=== PATIENT | female | born 1965 | race Caucasian/White ===

== ENCOUNTER 2022-01-16 08:01 | Outpatient (CLI) | payer OTHER, MEDICARE, SELFPAY ==
[2022-01-16 13:52] LABS: Chloride* 102 mmol/L (96-114); Sodium* 142 mmol/L (135-149)
[2022-01-16 13:53] LABS: Potassium* 3.7 mmol/L (3.6-5.1)
[2022-01-16 13:55] LABS: Blood Urea Nitrogen* 13 mg/dL (7-30); Carbon Dioxide* 30 mmol/L (20-32); Cholesterol* 228 mg/dL (90-199); Estimated Glomerular Filt Rate 65 ml/min
[2022-01-16 13:56] LABS: Calcium* 10.4 mg/dL (8.4-10.6); Glucose* 78 mg/dL (60-115); HDL Cholesterol* 72 mg/dL (>=50); LDL Cholesterol Calculated 137 mg/dL (<100); Triglycerides* 93 mg/dL (40-149)
== END 2022-01-16 08:02 | disposition home or self-care (01) ==
PROVIDERS: PCP Family Medicine; Visit Provider Family Medicine
DX: Z01.419 Encounter for gynecological examination (general) (routine) without abnormal findings (principal); I10 Essential (primary) hypertension; E78.5 Hyperlipidemia, unspecified; F41.9 Anxiety disorder, unspecified; Z13.0 Encounter for screening for diseases of the blood and blood-forming organs and certain disorders involving the immune mechanism
CPT/HCPCS: 80048; 80061

== ENCOUNTER 2022-04-12 14:00 | Outpatient (RCR) | payer OTHER, MEDICARE, SELFPAY | END 2022-05-01 23:59 | disposition home or self-care (01) | LOC: CCIC 14:00 | PROVIDERS: PCP Family Medicine; Visit Provider Nurse Practitioner Family | DX: C50.919 Malignant neoplasm of unspecified site of unspecified female breast (principal) | CPT/HCPCS: 99212; 99214 ==

== ENCOUNTER 2022-07-11 13:18 | Outpatient (CLI) | payer OTHER, MEDICARE, SELFPAY ==
--- NOTE | 2022-07-11 13:45 | CRLHL7_ITS ---
For Patients: As a result of the 21st Century Cures Act, medical imaging exams and procedure reports are released immediately into your electronic medical record. You may view this report before your referring provider. If you have questions, please contact your health care provider. Indication: Right leg weakness, history of breast cancer Technique: Multiplanar, multisequence, MRI of the lumbar spine, obtained without contrast. Comparison: No relevant comparison studies available at this institution. Findings: Thoracolumbar dextro curvature, apex at L1-2, with left eccentric degenerative Modic type 1 endplate changes at this level. Preserved lumbar lordosis, with degenerative grade 1 anterolisthesis L4 on L5, and associated degenerative Modic type 2 endplate changes. No evidence of acute fracture. Intrinsic bone marrow signal is unremarkable. The conus medullaris terminates at approximately L2. No suspicious findings within the paraspinal soft tissues. Unremarkable included SI joints. T12-L1: No significant neural foraminal or spinal canal stenosis. L1-L2: Diffuse disc bulge with left central cranial disc extrusion and mild facet arthropathy. Mild spinal canal narrowing and left lateral recess stenosis with impingement of the descending left L2 nerve. Mild left neural foraminal narrowing. No significant right neural foraminal narrowing. L2-L3: No significant neural foraminal or spinal canal stenosis. L3-L4: No significant neural foraminal or spinal canal stenosis. L4-L5: Anterolisthesis, disc unroofing/bulge, right asymmetric moderately advanced facet arthropathy. Mild left, moderate-severe right neural foraminal stenosis with likely impingement of the exiting right L4 nerve root. Moderate spinal canal stenosis. L5-S1: Shallow central disc protrusion and mild facet arthropathy. No significant neural foraminal or spinal canal stenosis. Impression: 1. No evidence of acute osseous abnormality. No suspicious marrow lesion to suggest metastatic disease on this noncontrast exam. 2. Lumbar spondylosis, with dextrocurvature apex at L1-2 associated with degenerative Modic type 1 endplate changes, and degenerative grade 1 anterolisthesis at L4-5 with degenerative Modic type 2 endplate changes. 3. At L1-2, left central cranial disc extrusion and mild facet arthropathy contribute to mild spinal canal narrowing with left lateral recess stenosis, potentially impinging the descending left L2 nerve root. 4. At L4-5, anterolisthesis, degenerative disc changes and facet arthropathy contribute to moderate-severe right neural foraminal stenosis with likely impingement of the exiting right L4 nerve root, and moderate spinal canal stenosis. Dictated by Tawnya Taylor MD @ 07/12/2022 12:36:01 PM (Electronically Signed)
== END 2022-07-11 13:19 | disposition home or self-care (01) ==
PROVIDERS: PCP Family Medicine; Visit Provider Family Medicine
DX: R29.898 Other symptoms and signs involving the musculoskeletal system (principal); Z85.3 Personal history of malignant neoplasm of breast; M47.896 Other spondylosis, lumbar region; M51.36 Other intervertebral disc degeneration, lumbar region
CPT/HCPCS: 72148

== ENCOUNTER 2022-07-19 15:47 | Outpatient (CLI) | payer OTHER, MEDICARE, SELFPAY ==
--- NOTE | 2022-07-19 16:15 | CRLHL7_ITS ---
For Patients: As a result of the 21st Century Cures Act, medical imaging exams and procedure reports are released immediately into your electronic medical record. You may view this report before your referring provider. If you have questions, please contact your health care provider. EXAM: PET-CT SKULL BASE TO THIGH CLINICAL INFORMATION: 57-yo female with history of breast cancer. Prior bilateral mastectomy with reconstruction in 2019. Prior chemotherapy. Weight loss. Neuropathy. Patient is referred for further characterization. TECHNIQUE: Radiopharmaceutical: 11.92 mCi of 18F-FDG Intravenous injection site: RAC Uptake time: 70 minutes Blood glucose level at the time of injection: 90 mg/dL Field of view: Skull base to mid-thighs CT protocol: The low-dose, free-breathing, noncontrast CT performed as part of this study is designed for the purposes of attenuation correction and lesion localization, and it is neither sufficient, nor it should be substituted for diagnostic purposes. COMPARISON: CT chest abdomen pelvis 10/19/2020 FINDINGS: Physiologic background liver standardized uptake value (SUV mean and SUV max) reported for comparison between PET studies: 3.1 and 3.8. Visualized head and neck: Physiologic uptake in the visualized portions of the brain. Small cysts/nodules in each lobe of the thyroid with no progressive uptake. -bandlike uptake across the posterior wall supraglottic larynx between arytenoid cartilage without noncontrast CT abnormality, SUV max 11.1 (fused image 39). Possibly reactive/inflammatory or physiologic. Consider direct visualization. Head and neck lymph nodes: Bilateral level 2 lymph nodes with uptake are nonspecific. For example: Left level 2 lymph node, 0.8 cm short axis, SUV max 3.8. Lungs: No hypermetabolic pulmonary nodules or abnormal uptake. Dependent areas of atelectasis. Thoracic lymph nodes: No hypermetabolic mediastinal, hilar or axillary thoracic lymph nodes. Other chest findings: Prior bilateral mastectomies with implant reconstruction. No suspicious chest/chest wall soft tissue or axillary soft uptake. Hepatobiliary: Low-density lesion lateral left hepatic lobe without suspicious uptake; previously described hemangioma. Curvilinear uptake along the gallbladder fundus and anterior inferior liver margin, SUV max 4.7 (fused image 146). No noncontrast CT abnormality. Possibly reactive or inflammatory. Spleen: No abnormal uptake. No splenomegaly. Pancreas: No abnormal uptake. Adrenal glands: No abnormal uptake. Kidneys and bladder: No abnormal uptake or obstruction. Limited bladder distention. Bowel and peritoneum: No suspicious gastric or small bowel uptake. Scattered areas of uptake in the distal colon demonstrate no definitive noncontrast CT abnormality. For example: Midsigmoid colon uptake, SUV max 4.1 (fused image 220). Nonspecific, possibly reactive/inflammatory or physiologic. Mild colonic diverticulosis without inflammatory change. Normal appendix. Pelvic organs: No abnormal uptake. Abdominopelvic lymph nodes: No hypermetabolic abdominopelvic lymph nodes. Musculoskeletal, soft tissues, skin: No suspicious tracer avid osseous lesions. Degenerative type uptake within the shoulders, right sternoclavicular joint and spine. Modest thoracolumbar curvature with multilevel disc degenerative change. Grade 2 anterolisthesis of L4 upon L5. Other: Scattered aortoiliac atherosclerotic vascular calcifications. IMPRESSION: 1. Postprocedural changes related to prior bilateral mastectomies with implant reconstruction. No suspicious chest/chest wall or axillary soft tissue uptake. 2. Unchanged low-density lesion lateral left hepatic lobe without suspicious uptake has been previously described as a hemangioma. Curvilinear uptake along the inferior liver margin bordering the gallbladder fundus is nonspecific. Correlate with symptoms and consider directed ultrasound. 3. Nonenlarged bilateral level 2 lymph nodes with uptake are nonspecific, possibly reactive/inflammatory. 4. Bandlike soft tissue uptake across the posterior supraglottic larynx without a discrete abnormality on noncontrast CT. Possibly reactive or physiologic. Consider direct visualization. 5. No distant sites of tracer avid disease in the lungs, abdominal pelvic lymph nodes or osseous structures. 6. Other nonacute findings as detailed in the body of the report. Dictated by Kelvin Vanessa MD @ 07/28/2022 5:30:46 PM (Electronically Signed)
== END 2022-07-19 15:48 | disposition home or self-care (01) ==
LOC: RAD 15:48
PROVIDERS: PCP Family Medicine; Visit Provider Physician Assistant
DX: R63.4 Abnormal weight loss (principal); C50.919 Malignant neoplasm of unspecified site of unspecified female breast; G62.9 Polyneuropathy, unspecified
CPT/HCPCS: 78815; A9552

== ENCOUNTER 2022-08-16 09:21 | Outpatient (CLI) | payer OTHER, MEDICARE, SELFPAY ==
--- NOTE | 2022-08-16 10:00 | CRLHL7_ITS ---
For Patients: As a result of the Century Cures Act, medical imaging exams and procedure reports are released immediately into your electronic medical record. You may view this report before your referring provider. If you have questions, please contact your health care provider. INDICATION: Breast cancer. TECHNIQUE: CT images acquired through the neck following intravenous contrast. COMPARISON: PET-CT 07/19/2022. FINDINGS: The nasopharynx, oropharynx, hypopharynx, and larynx are widely patent without enhancing lesions. No retropharyngeal edema or epiglottic thickening. No enhancing lesions in the oral cavity or floor of mouth. The parotid glands are unremarkable. The submandibular glands are hypoplastic or atrophic. Hypoenhancing 6 mm lesion left thyroid lobe, nonspecific. No pathologically enlarged lymph nodes. Mildly prominent bilateral level II lymph nodes are likely reactive. Atherosclerotic calcifications at the left greater than right carotid bifurcations. Limited images through the brain are without pathologic intracranial enhancement. The visualized paranasal sinuses and mastoid air cells are clear. Multilevel cervical spondylosis. No aggressive osseous lesions. Incompletely visualized breast implants. No concerning opacities in the visualized lungs. IMPRESSION: No mass or pathologically enlarged lymph nodes in the neck. Please note that all CT scans at this facility use dose modulation, iterative reconstruction, and/or weight-based dosing when appropriate to reduce radiation dose to as low as reasonably achievable. Dictated by Talon Smith MD @ 08/18/2022 7:09:06 AM (Electronically Signed)
== END 2022-08-16 09:22 | disposition home or self-care (01) ==
LOC: CT 09:21
PROVIDERS: PCP Family Medicine; Visit Provider Clinical Nurse Specialist
DX: C50.919 Malignant neoplasm of unspecified site of unspecified female breast (principal)
CPT/HCPCS: 70491; Q9967

== ENCOUNTER 2022-09-05 13:16 | Outpatient (CLI) | payer OTHER, MEDICARE, SELFPAY ==
--- NOTE | 2022-09-05 13:45 | CRLHL7_ITS ---
For Patients: As a result of the Century Cures Act, medical imaging exams and procedure reports are released immediately into your electronic medical record. You may view this report before your referring provider. If you have questions, please contact your health care provider. INDICATION: hypodense left thyroid nodule, hx breast cancer COMPARISON: CT 08/16/2022, CT-PET 07/19/2022 TECHNIQUE: Schuler scale and color Doppler images were acquired of the thyroid gland. FINDINGS: The thyroid gland demonstrates mildly heterogeneous echogenicity and has a smooth outer contour. The right lobe measures 5.4 x 1.0 x 1.7 cm and the left lobe measures 5.7 x 1.0 x 1.8 cm in size. Isthmus measures 2 millimeters. Circumscribed hypoechoic solid and cystic nodule within the left thyroid lobe laterally measuring 1.6 x 0.6 x 1.0 cm. Associated calcifications are present. Tiny sub centimeters colloid cysts are present bilaterally. The color Doppler images demonstrate normal vascularity. There is no evidence of cervical lymphadenopathy or parathyroid mass. IMPRESSION: 1.6 cm TR 4 nodule left thyroid lobe. FNA recommended. Dictated by Fly Morgan MD @ 09/06/2022 9:33:56 AM (Electronically Signed)
== END 2022-09-05 13:17 | disposition home or self-care (01) ==
LOC: US 13:17
PROVIDERS: PCP Family Medicine; Visit Provider Otolaryngology
DX: E04.1 Nontoxic single thyroid nodule (principal); E07.9 Disorder of thyroid, unspecified; Z85.3 Personal history of malignant neoplasm of breast; Z85.53 Personal history of malignant neoplasm of renal pelvis
CPT/HCPCS: 76536

== ENCOUNTER 2022-09-25 10:51 | Outpatient (CLI) | payer OTHER, MEDICARE, SELFPAY ==
--- NOTE | 2022-09-25 11:15 | CRLHL7_ITS ---
For Patients: As a result of the Century Cures Act, medical imaging exams and procedure reports are released immediately into your electronic medical record. You may view this report before your referring provider. If you have questions, please contact your health care provider. INDICATION : Left thyroid nodule. TECHNIQUE : Ultrasound-guided fine needle aspiration of thyroid nodule. Comparison : 09/05/2022 FINDINGS : PROCEDURE: After the informed consent and time-out, multiple fine needle aspirations were obtained from the thyroid nodule. Fine needle performed. 25 gauge needles were used. Lidocaine was used for local anesthesia. The preliminary cytology was adequate for interpretation. Real-time imaging was used for guidance and needle placement. Post imaging ultrasound demonstrates no immediate complication. IMPRESSION : Successful fine needle aspiration left thyroid lobe nodule. Dictated by Fly Morgan MD @ 09/25/2022 12:19:35 PM (Electronically Signed)
== END 2022-09-25 10:52 | disposition home or self-care (01) ==
LOC: US 10:52
PROVIDERS: PCP Family Medicine; Visit Provider Surgery
DX: E04.1 Nontoxic single thyroid nodule (principal)
CPT/HCPCS: 10005; 88173

== ENCOUNTER 2022-09-26 13:51 | Outpatient (RCR) | payer OTHER, SELFPAY | END 2022-11-20 10:17 | disposition home or self-care (01) | PROVIDERS: PCP Family Medicine; Visit Provider Physician Assistant | DX: M43.16 Spondylolisthesis, lumbar region (principal); M48.062 Spinal stenosis, lumbar region with neurogenic claudication; M54.50 Low back pain, unspecified; M62.81 Muscle weakness (generalized); Z51.89 Encounter for other specified aftercare | CPT/HCPCS: 97110; 97162 ==

== ENCOUNTER 2022-10-22 08:10 | Outpatient (RCR) | payer OTHER, MEDICARE, SELFPAY | END 2022-12-25 23:59 | disposition home or self-care (01) | LOC: CCIC 08:10 | PROVIDERS: PCP Family Medicine; Visit Provider Internal Medicine Hematology & Oncology | DX: C50.912 Malignant neoplasm of unspecified site of left female breast (principal); Z17.1 Estrogen receptor negative status [ER-]; F41.1 Generalized anxiety disorder; F32.A Depression, unspecified; G62.9 Polyneuropathy, unspecified; R63.4 Abnormal weight loss; E04.1 Nontoxic single thyroid nodule | CPT/HCPCS: 36415; 85027; 99212; 99214; 99215 ==

== ENCOUNTER 2023-01-18 09:13 | Outpatient (CLI) | payer OTHER, MEDICARE, SELFPAY | END 2023-01-18 09:14 | disposition home or self-care (01) | LOC: NFLDREF 01-19 11:52 | PROVIDERS: PCP Family Medicine; Referring Provider Family Medicine; Visit Provider Family Medicine | DX: D64.9 Anemia, unspecified (principal); E55.9 Vitamin D deficiency, unspecified; E78.5 Hyperlipidemia, unspecified; G62.9 Polyneuropathy, unspecified; I10 Essential (primary) hypertension | CPT/HCPCS: 80053; 80061; 82306; 82607; 82728 ==

== ENCOUNTER 2023-04-29 13:49 | Outpatient (RCR) | payer OTHER, MEDICARE, SELFPAY | END 2023-10-26 23:59 | disposition home or self-care (01) | LOC: CCIC 13:49 | PROVIDERS: PCP Family Medicine; Visit Provider Physician Assistant | DX: C50.912 Malignant neoplasm of unspecified site of left female breast (principal); Z17.1 Estrogen receptor negative status [ER-]; Z90.13 Acquired absence of bilateral breasts and nipples; D22.9 Melanocytic nevi, unspecified | CPT/HCPCS: 99214; G0463 ==

== ENCOUNTER 2023-10-21 14:44 | Outpatient (CLI) | payer OTHER, MEDICARE, SELFPAY ==
--- NOTE | 2023-10-21 15:00 | CRLHL7_ITS ---
For Patients: As a result of the Century Cures Act, medical imaging exams and procedure reports are released immediately into your electronic medical record. You may view this report before your referring provider. If you have questions, please contact your health care provider. INDICATION: Nontoxic goiter TECHNIQUE: Conventional two-dimensional mccall-scale ultrasound of the thyroid gland. COMPARISON: None. FINDINGS: In the mid left thyroid lobe is a solid and cystic 1.4 x 0.6 x 0.6 cm nodule, the solid component being hypoechoic (TR4). By report, this previously measured 1.6 x 1.0 x 0.6 cm. A few small cysts (TR1) are also noted. The thyroid parenchyma is otherwise unremarkable. The right lobe measures 4.7 x 1.1 x 1.6 cm and the left lobe 5.1 x 1.0 x 1.5 cm. The isthmus measures 2 mm in thickness. IMPRESSION: Solid and cystic 1.4 cm TR4 mid left lobe nodule which by report previously measured up 1.6 cm. ACR TI-RADS: TR1: Benign No FNA TR2: Not Suspicious No FNA TR3: Mildly Suspicious FNA if greater than or equal to 2.5 cm Follow if greater than or equal to 1.5 cm and less than 2.5 cm TR4: Moderately Suspicious FNA if greater than or equal to 1.5 cm Follow if greater than or equal to 1 cm and less than 1.5 cm TR5: Highly Suspicious FNA if greater than or equal to 1 cm Follow if greater than or equal to 0.5 cm and less than 1.0 cm Dictated by Gregg Richardson MD @ 10/22/2023 4:59:34 AM (Electronically Signed)
== END 2023-10-21 14:45 | disposition home or self-care (01) ==
LOC: US 14:44
PROVIDERS: PCP Family Medicine; Visit Provider Surgery
DX: E04.1 Nontoxic single thyroid nodule (principal)
CPT/HCPCS: 76536

== ENCOUNTER 2023-11-11 12:27 | Outpatient (RCR) | payer OTHER, MEDICARE, SELFPAY ==
--- NOTE | 2023-10-28 08:49 | ONC.NURNOTE ---
Pt left message stating she is unable to make her appt with Adenike Palmer PA-C and needs to reschedule. Ict Support Engineer called and left message for pt to call back and reschedule.
== END 2024-05-09 23:59 | disposition home or self-care (01) ==
LOC: CCIC 12:27
PROVIDERS: PCP Family Medicine; Visit Provider Physician Assistant
DX: C50.912 Malignant neoplasm of unspecified site of left female breast (principal); Z17.1 Estrogen receptor negative status [ER-]; E04.1 Nontoxic single thyroid nodule; G62.9 Polyneuropathy, unspecified; Z90.13 Acquired absence of bilateral breasts and nipples
CPT/HCPCS: 99214; G0463

== ENCOUNTER 2024-05-06 10:11 | Outpatient (CLI) | payer OTHER, MEDICARE, SELFPAY | END 2024-05-06 10:12 | disposition home or self-care (01) | PROVIDERS: PCP Family Medicine; Visit Provider Family Medicine | DX: E55.9 Vitamin D deficiency, unspecified (principal); E78.00 Pure hypercholesterolemia, unspecified; D64.9 Anemia, unspecified; I10 Essential (primary) hypertension; F33.1 Major depressive disorder, recurrent, moderate; G62.9 Polyneuropathy, unspecified; F41.1 Generalized anxiety disorder | CPT/HCPCS: 80053; 80061; 82306; 82607; 82728 ==

== ENCOUNTER 2024-07-22 14:18 | Outpatient (RCR) | payer OTHER, MEDICARE, SELFPAY ==
--- NOTE | 2024-06-03 15:52 | ONC.NURNOTE ---
06/03/24 PATIENT REQUESTED TO CANCEL APPT. WITH JONNY JOHNSON 06/04/24 patients mom is in hospital patient GOING TO SPEND TIME WITH MOM PATIENT WILL PRICILA TO RE SCHEDULE
== END 2025-01-18 23:59 | disposition home or self-care (01) ==
LOC: CCIC 14:18
PROVIDERS: PCP Family Medicine; Visit Provider Internal Medicine Hematology & Oncology
DX: C50.912 Malignant neoplasm of unspecified site of left female breast (principal); Z17.1 Estrogen receptor negative status [ER-]; Z90.13 Acquired absence of bilateral breasts and nipples; E04.1 Nontoxic single thyroid nodule
CPT/HCPCS: 99214; G0463

== ENCOUNTER 2024-08-27 08:48 | Outpatient (CLI) | payer OTHER, MEDICARE, SELFPAY ==
--- NOTE | 2024-08-27 10:28 | P.ANES_ITS ---
Anesthesia Charges Start Date/Time Anesthesia Start Date: 08/27/24 Anesthesia Start Time: 09:36 Stop Date/Time Anesthesia Stop Date: 08/27/24 Anesthesia Stop Time: 10:25 Coding CPT Codes CPT Codes: COLEEN LWR INTST NDSC NOS - [id number] ([id number]) P2 - PATIENT W/MILD SYST DISEASE, QK - CONSTRUCTION LABORER 2-4 CNCRNT ANES PROC, QX - COLLECTION SYSTEMS TECHNICIAN SVC W/ MD MED DIRECTION
--- NOTE | 2024-08-27 10:28 | W.ANESCHARGE ---
Anesthesia Charges Start Date/Time Anesthesia Start Date: 08/27/24 Anesthesia Start Time: 09:36 Stop Date/Time Anesthesia Stop Date: 08/27/24 Anesthesia Stop Time: 10:25 Coding CPT Codes CPT Codes: COLEEN LWR INTST NDSC NOS - [id number] ([id number]) P2 - PATIENT W/MILD SYST DISEASE, QK - BLOW DOWN HELPER 2-4 CNCRNT ANES PROC, QX - MARKET SALES MANAGER SVC W/ MD MED DIRECTION
--- NOTE | 2024-08-27 10:50 | P.ANES_ITS ---
Anesthesia Charges Start Date/Time Anesthesia Start Date: 08/27/24 Anesthesia Start Time: 09:36 Stop Date/Time Anesthesia Stop Date: 08/27/24 Anesthesia Stop Time: 10:25 Coding CPT Codes CPT Codes: COLEEN LWR INTST NDSC NOS - [id number] ([id number]) P2 - PATIENT W/MILD SYST DISEASE, QK - SENIOR FOREMAN 2-4 CNCRNT ANES PROC, QX - CORONER TECHNICIAN SVC W/ MD MED DIRECTION
--- NOTE | 2024-08-27 10:50 | W.ANESCHARGE ---
Anesthesia Charges Start Date/Time Anesthesia Start Date: 08/27/24 Anesthesia Start Time: 09:36 Stop Date/Time Anesthesia Stop Date: 08/27/24 Anesthesia Stop Time: 10:25 Coding CPT Codes CPT Codes: COLEEN LWR INTST NDSC NOS - [id number] ([id number]) P2 - PATIENT W/MILD SYST DISEASE, QK - ENERGY TECHNICIAN 2-4 CNCRNT ANES PROC, QX - HAZARDOUS WASTE REMOVER SVC W/ MD MED DIRECTION
== END 2024-08-27 08:49 | disposition home or self-care (01) ==
LOC: OP CLINIC 08:50
PROVIDERS: PCP Family Medicine; Visit Provider Surgery
DX: Z12.11 Encounter for screening for malignant neoplasm of colon (principal); Z80.0 Family history of malignant neoplasm of digestive organs; D12.2 Benign neoplasm of ascending colon; K57.30 Diverticulosis of large intestine without perforation or abscess without bleeding
CPT/HCPCS: 00811; 00812; 45385; 88305; J2704